=== PATIENT | female | born 2000 | race African-American/Black ===

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

== ENCOUNTER 2024-01-27 00:34 | Emergency (ER) | payer SELFPAY ==
[~2024-01-27] VITALS: Ht 175.3 cm; Wt 73.0 kg
[2024-01-27 00:38] VITALS: BP 112/73; PULSE 99; RESP 20; TEMP 98; O2SAT 98
== END 2024-01-27 07:28 | disposition left against medical advice (07) ==
LOC: ER 00:34
DX: R10.9 Unspecified abdominal pain (principal); Z53.21 Procedure and treatment not carried out due to patient leaving prior to being seen by health care provider
CPT/HCPCS: 82962; 99281